=== PATIENT | female | born 1970 | race Caucasian/White ===

== ENCOUNTER → 2018-03-29 | Outpatient (CLI) | payer BC ==
[~2018-03-29] MED LIST: PROTONIX 40MG T40 MG PO; ZOCOR 40MG40 MG PO
== END ==
LOC: MC.RAD 08:20
DX: Z12.31 Encounter for screening mammogram for malignant neoplasm of breast (principal); N64.89 Other specified disorders of breast

== ENCOUNTER → 2018-04-03 | Outpatient (CLI) | payer BC | LOC: MC.RAD 13:00 | DX: N64.89 Other specified disorders of breast (principal) | CPT/HCPCS: G0279 ==

== ENCOUNTER 2019-05-08 13:05 | Emergency (ER) | payer BC ==
[~2019-05-08] VITALS: Ht 157.5 cm; Wt 70.5 kg
[2019-05-08] MEDS ORDERED: LOPRESSOR 550 MG/TAB PO (13:21)
[2019-05-08] MEDS ORDERED: NORVASC 5MG5 MG/TAB PO (13:21)
[2019-05-08] MEDS ORDERED: ZANTAC 300300 MG PO (13:21)
[2019-05-08] MEDS ORDERED: WELLBUTRIN XL150 MG PO (13:21)
[2019-05-08 15:00] VITALS: BP 146/88; PULSE 86; TEMP 98.8
[2019-05-08] MEDS ORDERED: NORCO 325 MG-51 TAB PO (15:07)
== END 2019-05-08 15:00 | disposition home or self-care (01) ==
LOC: COL.ER 13:05
DX: S52.122A Displaced fracture of head of left radius, initial encounter for closed fracture (principal); S52.121A Displaced fracture of head of right radius, initial encounter for closed fracture; E78.5 Hyperlipidemia, unspecified; I10 Essential (primary) hypertension; F41.9 Anxiety disorder, unspecified; W01.0XXA Fall on same level from slipping, tripping and stumbling without subsequent striking against object, initial encounter; Y92.410 Unspecified street and highway as the place of occurrence of the external cause
CPT/HCPCS: Q4050

== ENCOUNTER → 2020-03-10 | Outpatient (CLI) | payer BC ==
[~2020-03-10] MED LIST changes: +LOPRESSOR 550 MG/TAB PO; +NORCO 325 MG-51 TAB PO; +NORVASC 5MG5 MG/TAB PO; +WELLBUTRIN XL150 MG PO; +ZANTAC 300300 MG PO
== END ==
LOC: MC.RAD 08:45
DX: Z12.31 Encounter for screening mammogram for malignant neoplasm of breast (principal)

== ENCOUNTER → 2021-10-11 | Outpatient (CLI) | payer BC | LOC: MC.RAD 08:23 | DX: Z12.31 Encounter for screening mammogram for malignant neoplasm of breast (principal) ==

== ENCOUNTER → 2023-12-18 | Outpatient (CLI) | payer BC | LOC: MC.RAD 07:09 | DX: Z12.31 Encounter for screening mammogram for malignant neoplasm of breast (principal) ==